=== PATIENT | male | born 1990 | race Caucasian/White ===

== ENCOUNTER 2016-11-07 05:49 | Emergency (ER) | payer BC ==
[~2016-11-07] VITALS: Ht 175.3 cm; Wt 86.2 kg
[2016-11-07 05:50] VITALS: BP 130/79; PULSE 72; RESP 16; TEMP 97.2; O2SAT 98
--- NOTE | 2016-11-07 05:50 | NUR ---
Placed in CHAIR 1.Report given to Macy GUERRERO.
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
--- NOTE | 2016-11-07 06:04 | NUR ---
ER at bedside examining patient.
--- NOTE | 2016-11-07 06:07 | NUR ---
Written and verbal consent obtained from patient for blood alcohol, name and verified by patient. Disinfected patient's skin with iodine that did not contain alcohol or other volatile organic compound. Collected the blood from the subject named by venipuncture, in the presence of Officer [id number]. Used a sterile, dry hypodermic needle and dry vacuum blood collection. The dry vacuum blood collection was supplied by the officer named above. Withdrew a specimen of blood from right antecubital of the subject named above. Inverted the blood tube several times to ensure that the preservative and anticoagulant were thoroughly mixed in the blood specimen. I initialed the blood tube label for identification. The labeled blood tube was handed directly to the Officer named above. The blood tube stopper remained in place while I had possession of the blood tube. The Officer placed tube into envelope and sealed it in my presence. Envelope initialed by myself and Officer named above. Patient tolerated well, bandage applied, and bleeding controlled.
--- NOTE | 2016-11-07 06:10 | NUR ---
ER MD Iraheta evaluated patient
[2016-11-07 06:15] VITALS: BP 125/71; PULSE 72; RESP 16; TEMP 97.5; O2SAT 98
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
== END 2016-11-07 06:15 | disposition home or self-care (01) ==
LOC: SED 05:49
DX: Z02.83 Encounter for blood-alcohol and blood-drug test (principal); V89.2XXA Person injured in unspecified motor-vehicle accident, traffic, initial encounter; Y93.89 Activity, other specified; Y99.8 Other external cause status; Y92.89 Other specified places as the place of occurrence of the external cause
CPT/HCPCS: 99283